=== PATIENT | female | born 1995 | race Caucasian/White ===

== ENCOUNTER → 2024-06-25 | Day surgery (SDC) | payer BC ==
[~2024-06-25] MED LIST: Ondansetron PF 4 MG/2 ML Vial ONE; diphenhydrAMINE 50 MG/ML VIAL ONE
[2024-06-25] MEDS: Lactated Ringer's 1,000 ML IV SCH (09:34)
[2024-06-25] MEDS: Ondansetron PF 4 MG/2 ML Vial IVP PRN (09:45)
[2024-06-25 10:45] LABS: Anion Gap 16 mmol/L (10-20); BUN (Urea Nitrogen) 12 mg/dL (7.0-18.7); Calc. Creatinine Clearance 0 mL/min (70-130); Calcium 9.4 mg/dL (7.8-10.44); Carbon Dioxide 18 mmol/L (22-29); Chloride 105 mmol/L (98-107); Estimated GFR 123; Glucose 87 mg/dL (70-105); Phosphorus 3.5 mg/dL (2.3-4.7); Potassium 4.5 mmol/L (3.5-5.1); Sodium 134 mmol/L (136-145)
[2024-06-25] MEDS: Metoclopramide HCl 10 MG (2 mL) VIAL IVP PRN (16:45)
[2024-06-25] MEDS: diphenhydrAMINE 50 MG/ML VIAL IVP PRN (16:45)
[2024-06-28 12:26] LABS: Anion Gap 12 mmol/L (10-20); BUN (Urea Nitrogen) 7 mg/dL (7.0-18.7); Calc. Creatinine Clearance 0 mL/min (70-130); Calcium 8.7 mg/dL (7.8-10.44); Carbon Dioxide 19 mmol/L (22-29); Chloride 107 mmol/L (98-107); Estimated GFR 128; Glucose 82 mg/dL (70-105); Magnesium 1.8 mg/dL (1.6-2.6); Phosphorus 2.2 mg/dL (2.3-4.7); Potassium 3.2 mmol/L (3.5-5.1); Sodium 135 mmol/L (136-145)
[2024-06-28 12:53] VITALS: BP 116/69; TEMP 98
== END ==
LOC: ONC/OP 09:18
PROVIDERS: ATTEND Family Medicine
DX: O21.1 Hyperemesis gravidarum with metabolic disturbance (principal); Z3A.08 8 weeks gestation of pregnancy
CPT/HCPCS: 36416; 80048; 83735; 84100; 96361; 96374; 96375; J1200; J2405; J2765